=== PATIENT | female | born 1990 | race Caucasian/White ===

== ENCOUNTER 2025-04-21 21:38 | Emergency (ER) | payer BC ==
[~2025-04-21] VITALS: Ht 157.5 cm; Wt 103.0 kg
[2025-04-21 22:54] VITALS: BP 129/79; TEMP 98.8; O2SAT 98
== END 2025-04-21 23:02 | disposition home or self-care (01) ==
LOC: ER 21:44
DX: L03.114 Cellulitis of left upper limb (principal); Z90.89 Acquired absence of other organs